=== PATIENT | male | born 1960 | race Caucasian/White ===

== ENCOUNTER → 2022-10-22 | Outpatient (CLI) | payer MEDICARE, SELFPAY ==
--- NOTE | 2022-10-22 16:12 | VDLE_ITS ---
Reason For Study: Pain Procedure LEFT This is a venous duplex using B-mode, color GSV is normal. flow and spectral Doppler. CFV is compressible, spontaneous, phasic, Exam performed in department. competent, and demonstrates normal Technically difficult to visualize calf augmentation. veins. FV is compressible, spontaneous, phasic, A preliminary report was called and/or faxed competent and demonstrates normal to Kate BARBER. augmentation. POP V is compressible, spontaneous, phasic, competent and demonstrates normal augmentation. T/P Trunk is compressible. PTV is compressible. LT PerV is compressible. VL/Venous Duplex US, Unilateral Interpretation Summary There is no evidence of left lower extremity deep vein thrombosis. Left great s aphenous vein appears patent and compressible segmentally. Technically difficult examination to nadiya franklin left calf veins Ordering Physician: Lupillo Love Referring Physician: Elizabeth Harper Performed By: Erika Barakat RVT
== END | disposition home or self-care (01) ==
LOC: CVS 16:06
PROVIDERS: PCP Family Medicine; Visit Provider Physician Assistant
DX: S82.032D Displaced transverse fracture of left patella, subsequent encounter for closed fracture with routine healing (principal); M79.662 Pain in left lower leg; X58.XXXD Exposure to other specified factors, subsequent encounter
CPT/HCPCS: 93971